=== PATIENT | female | born 1980 | race Caucasian/White ===

== ENCOUNTER 2017-12-10 08:04 | Inpatient (IN) | payer OTHER ==
[2017-12-10] MEDS ORDERED: AL HYDROX/MG HYDROX/SIMETH 30 ML CUP PO (10:00)
[2017-12-10] MEDS ORDERED: ONDANSETRON 4 MG INJ IV (10:00)
[2017-12-10 10:20] LABS: ADD UMIC YES; UR ASCORBIC ACID NEGATIVE (NEGATIVE); UR BACTERIA MANY /HPF (NONE SEEN); UR BILIRUBIN (Dip) NEGATIVE (NEGATIVE); UR BLOOD (Dip) NEGATIVE (NEGATIVE); UR CLARITY CLEAR (CLEAR); UR COLOR YELLOW (YELLOW); UR GLUCOSE (Dip) NEGATIVE (NEGATIVE); UR KETONES (Dip) NEGATIVE (NEGATIVE); UR LEUKOCYTE ESTERASE (Dip) NEGATIVE Leu/ul (NEGATIVE); UR NITRITE (Dip) POSITIVE (NEGATIVE); UR RBC 1 /HPF (0-5); UR SPECIFIC GRAVITY (Dip) 1.019 (1.003-1.030); UR TOTAL PROTEIN (Dip) NEGATIVE (NEGATIVE); UR UROBILINOGEN (Dip) NEGATIVE (NEGATIVE); UR WBC 13 /HPF (0-5)
[2017-12-10 10:48] LABS: ADD MAN DIFF? NO
[2017-12-10] MEDS: LACTATED RINGER'S 1,000 ML IV ×2 (10:56→19:08)
[2017-12-10] MEDS: PIPER-TAZO 3.375 GM IV (PMX) 100 ML IVPB ×3 (10:56→23:47)
[2017-12-10 11:02] LABS: BASOPHILS % 0.5 % (0.0-2.0); EOSINOPHILS # 0.2 10^3/ul (0.0-0.5); EOSINOPHILS % 3.4 % (0.0-7.0); HEMATOCRIT 30.9 % (37.0-47.0); HEMOGLOBIN 10.7 g/dl (12.0-16.0); LYMPHOCYTES # 2.2 10^3/ul (0.8-2.9); LYMPHOCYTES % 33.6 % (15.0-51.0); MEAN CORPUSCULAR HEMOGLOBIN 31.6 pg (29.0-33.0); MEAN CORPUSCULAR HGB CONC 34.6 g/dl (32.0-37.0); MEAN CORPUSCULAR VOLUME 91.2 fl (82.0-101.0); MEAN PLATELET VOLUME 10.1 fl (7.4-10.4); MONOCYTE # 0.5 10^3/ul (0.3-0.9); MONOCYTES % 7.4 % (0.0-11.0); NEUTROPHIL # 3.6 10^3/ul (1.6-7.5); NEUTROPHILS % 54.6 % (39.0-77.0); PLATELET COUNT 193 10^3/UL (140-415); RED BLOOD COUNT 3.39 10^6/ul (4.20-5.40); RED CELL DISTRIBUTION WIDTH 13.5 % (11.5-14.5)
[2017-12-10 11:02] LABS: WHITE BLOOD COUNT 6.5 10^3/ul (4.8-10.8)
[2017-12-10] MEDS: FERROUS SULFATE (EC) 325 MG TAB PO (21:19)
[2017-12-11] MEDS: PIPER-TAZO 3.375 GM IV (PMX) 100 ML IVPB ×4 (05:53→23:49)
[2017-12-11] MEDS: FERROUS SULFATE (EC) 325 MG TAB PO ×3 (09:17→23:48)
[2017-12-11] MEDS: PRENATAL VITAMIN PO (09:17)
[2017-12-11] MEDS: DOCUSATE SODIUM 100 MG CAP PO (09:18)
[2017-12-12] MEDS: LACTATED RINGER'S 1,000 ML IV ×2 (01:41→10:13)
[2017-12-12] MEDS: PIPER-TAZO 3.375 GM IV (PMX) 100 ML IVPB ×3 (05:49→17:54)
[2017-12-12] MEDS: FERROUS SULFATE (EC) 325 MG TAB PO ×3 (10:12→21:56)
[2017-12-12] MEDS: PRENATAL VITAMIN PO (10:12)
[2017-12-12] MEDS: DOCUSATE SODIUM 100 MG CAP PO (10:12)
[2017-12-13] MEDS: PIPER-TAZO 3.375 GM IV (PMX) 100 ML IVPB ×5 (00:08→23:24)
[2017-12-13] MEDS: LACTATED RINGER'S 1,000 ML IV (05:34)
[2017-12-13] MEDS: DOCUSATE SODIUM 100 MG CAP PO (09:41)
[2017-12-13] MEDS: PRENATAL VITAMIN PO (09:41)
[2017-12-13] MEDS: FERROUS SULFATE (EC) 325 MG TAB PO ×2 (09:41→21:20)
[2017-12-14] MEDS: LACTATED RINGER'S 1,000 ML IV ×2 (01:38→13:02)
[2017-12-14] MEDS: PIPER-TAZO 3.375 GM IV (PMX) 100 ML IVPB ×3 (05:36→18:15)
[2017-12-14] MEDS: PRENATAL VITAMIN PO (10:32)
[2017-12-14] MEDS: DOCUSATE SODIUM 100 MG CAP PO (10:32)
[2017-12-14] MEDS: FERROUS SULFATE (EC) 325 MG TAB PO ×2 (10:32→21:31)
[2017-12-15] MEDS: PIPER-TAZO 3.375 GM IV (PMX) 100 ML IVPB ×5 (00:02→23:54)
[2017-12-15] MEDS: LACTATED RINGER'S 1,000 ML IV ×2 (06:04→23:54)
[2017-12-15] MEDS: DOCUSATE SODIUM 100 MG CAP PO (08:27)
[2017-12-15] MEDS: FERROUS SULFATE (EC) 325 MG TAB PO ×2 (08:27→20:45)
[2017-12-15] MEDS: PRENATAL VITAMIN PO (08:27)
[2017-12-16] MEDS: PIPER-TAZO 3.375 GM IV (PMX) 100 ML IVPB ×4 (05:42→23:37)
[2017-12-16] MEDS: DOCUSATE SODIUM 100 MG CAP PO (08:53)
[2017-12-16] MEDS: FERROUS SULFATE (EC) 325 MG TAB PO ×2 (08:53→20:55)
[2017-12-16] MEDS: PRENATAL VITAMIN PO (08:53)
[2017-12-17] MEDS: LACTATED RINGER'S 1,000 ML IV (01:41)
[2017-12-17] MEDS: PIPER-TAZO 3.375 GM IV (PMX) 100 ML IVPB (05:52)
[2017-12-17] MEDS: PRENATAL VITAMIN PO (09:13)
[2017-12-17] MEDS: FERROUS SULFATE (EC) 325 MG TAB PO (09:13)
[2017-12-17] MEDS: DOCUSATE SODIUM 100 MG CAP PO (09:16)
[2017-12-17] MEDS: ACETAMINOPHEN 325 MG TAB PO (10:39)
== END 2017-12-17 12:47 | disposition home or self-care (01) | DRG 781 ==
LOC: PP1 08:04
DX: O23.02 Infections of kidney in pregnancy, second trimester (principal); B96.20 Unspecified Escherichia coli [E. coli] as the cause of diseases classified elsewhere; Z3A.19 19 weeks gestation of pregnancy; O09.522 Supervision of elderly multigravida, second trimester
CPT/HCPCS: 76817; 81001; 85025; 87086; 93005

== ENCOUNTER 2018-05-11 09:37 | Inpatient (IN) | payer OTHER ==
[2018-05-11] MEDS ORDERED: MISOPROSTOL 200 MCG TAB PR (10:30)
[2018-05-11] MEDS ORDERED: IBUPROFEN 600 MG TAB PO (10:30)
[2018-05-11] MEDS ORDERED: BUTORPHANOL 2 MG INJ IV (10:30)
[2018-05-11] MEDS ORDERED: LIDOCAINE 1% (MPF) 30 ML INJ INJ (10:30)
[2018-05-11] MEDS ORDERED: OXYTOCIN 30 UNITS/LR 500 ML IV ×3 (10:30→20:30)
[2018-05-11] MEDS ORDERED: CARBOPROST 250 MCG INJ IM (10:30)
[2018-05-11] MEDS: LACTATED RINGER'S 1,000 ML IV ×2 (11:24→18:31)
[2018-05-11 11:40] LABS: ADD MAN DIFF? NO
[2018-05-11 11:44] LABS: BASOPHILS % 0.3 % (0.0-2.0); EOSINOPHILS # 0.1 10^3/ul (0.0-0.5); HEMATOCRIT 32.8 % (37.0-47.0); LYMPHOCYTES # 1.7 10^3/ul (0.8-2.9); LYMPHOCYTES % 23.4 % (15.0-51.0); MEAN CORPUSCULAR HEMOGLOBIN 29.7 pg (29.0-33.0); MEAN CORPUSCULAR HGB CONC 33.5 g/dl (32.0-37.0); MEAN CORPUSCULAR VOLUME 88.6 fl (82.0-101.0); MEAN PLATELET VOLUME 9.9 fl (7.4-10.4); MONOCYTE # 0.6 10^3/ul (0.3-0.9); MONOCYTES % 7.6 % (0.0-11.0); NEUTROPHIL # 4.8 10^3/ul (1.6-7.5); NEUTROPHILS % 66.3 % (39.0-77.0); PLATELET COUNT 229 10^3/UL (140-415)
[2018-05-11 11:44] LABS: WHITE BLOOD COUNT 7.2 10^3/ul (4.8-10.8)
[2018-05-11 12:12] LABS: INR 0.99; PROTIME 13.2 Sec (11.9-14.9)
[2018-05-11 12:26] LABS: PARTIAL THROMBOPLASTIN TIME 27.9 Sec (23.0-35.0)
[2018-05-11 12:32] LABS: HEPATITIS B SURFACE ANTIGEN NEGATIVE (NEGATIVE)
[2018-05-11 16:24] LABS: RAPID PLASMA REAGIN NONREACTIVE (NR)
[2018-05-12] MEDS: LACTATED RINGER'S 1,000 ML IV ×4 (02:31→12:19)
[2018-05-12] MEDS: OXYTOCIN 30 UNITS/LR 500 ML IV ×2 (07:08→14:21)
[2018-05-12] MEDS ORDERED: FENTAnyl 2MCG/ML-ROPIV 0.2% 100 ML (08:03)
[2018-05-12] MEDS ORDERED: DIPHENHYDRAMINE 50 MG INJ IV (09:00)
[2018-05-12] MEDS ORDERED: NALOXONE (0.4 MG/ML) INJ IV (09:00)
[2018-05-12] MEDS ORDERED: FENTAnyl 2MCG/ML-ROPIV 0.2% 100 ML BAG EPI (09:00)
[2018-05-12] MEDS ORDERED: ONDANSETRON 4 MG INJ IV (09:00)
[2018-05-12] MEDS ORDERED: MINERAL OIL LIGHT 10 ML VIAL (13:37)
[2018-05-12] MEDS: MINERAL OIL LIGHT 10 ML VIAL TOP (14:00)
[2018-05-12] MEDS: METHYLERGONOVINE 0.2 MG INJ IM (14:19)
[2018-05-12] MEDS: MISOPROSTOL 200 MCG TAB PR (14:52)
[2018-05-12] MEDS ORDERED: METHYLERGONOVINE 0.2 MG INJ IM (16:30)
[2018-05-12] MEDS ORDERED: MISOPROSTOL 200 MCG TAB PR (16:30)
[2018-05-12] MEDS ORDERED: CARBOPROST 250 MCG INJ IM (16:30)
[2018-05-12] MEDS ORDERED: OXYTOCIN 30 UNITS/LR 500 ML IV (16:30)
[2018-05-12] MEDS: BENZOCAINE 20% 56 ML SPRAY TOP (18:03)
[2018-05-12] MEDS: WITCH HAZEL/GLYCERIN PAD PR (18:03)
[2018-05-12] MEDS: IBUPROFEN 600 MG TAB PO (18:03)
[2018-05-12] MEDS: DIBUCAINE 1% 30 GM OINT TOP (18:03)
[2018-05-12] MEDS: LACTATED RINGER'S 1,000 ML IV* (18:04)
[2018-05-12] MEDS: SENNA/DOCUSATE NA (8.6MG/50MG) TAB PO (20:58)
[2018-05-12] MEDS: HYDROCODONE/APAP (5/325) TAB PO (22:27)
[2018-05-13] MEDS: IBUPROFEN 600 MG TAB PO ×5 (05:46→23:39)
[2018-05-13 07:57] LABS: ADD MAN DIFF? NO
[2018-05-13 08:03] LABS: BASOPHILS % 0.2 % (0.0-2.0); EOSINOPHILS # 0.1 10^3/ul (0.0-0.5); HEMATOCRIT 28.3 % (37.0-47.0); HEMOGLOBIN 9.5 g/dl (12.0-16.0); LYMPHOCYTES # 2.4 10^3/ul (0.8-2.9); LYMPHOCYTES % 25.1 % (15.0-51.0); MEAN CORPUSCULAR HEMOGLOBIN 29.7 pg (29.0-33.0); MEAN CORPUSCULAR HGB CONC 33.6 g/dl (32.0-37.0); MEAN CORPUSCULAR VOLUME 88.4 fl (82.0-101.0); MEAN PLATELET VOLUME 9.9 fl (7.4-10.4); MONOCYTE # 0.9 10^3/ul (0.3-0.9); MONOCYTES % 9.5 % (0.0-11.0); NEUTROPHILS % 63.4 % (39.0-77.0); PLATELET COUNT 200 10^3/UL (140-415); RED CELL DISTRIBUTION WIDTH 14.1 % (11.5-14.5)
[2018-05-13 08:03] LABS: WHITE BLOOD COUNT 9.5 10^3/ul (4.8-10.8)
[2018-05-13] MEDS: SENNA/DOCUSATE NA (8.6MG/50MG) TAB PO ×2 (09:30→21:00)
[2018-05-13] MEDS: HYDROCODONE/APAP (5/325) TAB PO ×2 (09:38→18:47)
[2018-05-13] MEDS: ACETAMINOPHEN 325 MG TAB PO (23:41)
[2018-05-14] MEDS: IBUPROFEN 600 MG TAB PO ×4 (05:38→23:42)
[2018-05-14] MEDS: BENZOCAINE 20% 56 ML SPRAY TOP (08:35)
[2018-05-14] MEDS: SENNA/DOCUSATE NA (8.6MG/50MG) TAB PO ×2 (08:35→21:31)
[2018-05-14] MEDS: WITCH HAZEL/GLYCERIN PAD PR (08:35)
[2018-05-14] MEDS: DIPHTH/TET/ACEL PERTUSS (ADULT) 0.5 ML VIAL IM* (09:00)
[2018-05-14] MEDS: HYDROCODONE/APAP (5/325) TAB PO (10:07)
[2018-05-14 12:09] LABS: ADD MAN DIFF? NO
[2018-05-14 12:13] LABS: BASOPHILS % 0.2 % (0.0-2.0); EOSINOPHILS % 0.2 % (0.0-7.0); HEMATOCRIT 29.1 % (37.0-47.0); HEMOGLOBIN 9.6 g/dl (12.0-16.0); LYMPHOCYTES # 0.8 10^3/ul (0.8-2.9); LYMPHOCYTES % 7.4 % (15.0-51.0); MEAN CORPUSCULAR HEMOGLOBIN 29.5 pg (29.0-33.0); MEAN CORPUSCULAR VOLUME 89.5 fl (82.0-101.0); MEAN PLATELET VOLUME 9.2 fl (7.4-10.4); MONOCYTE # 0.9 10^3/ul (0.3-0.9); MONOCYTES % 7.8 % (0.0-11.0); NEUTROPHIL # 9.4 10^3/ul (1.6-7.5); NEUTROPHILS % 83.1 % (39.0-77.0); PLATELET COUNT 190 10^3/UL (140-415); RED BLOOD COUNT 3.25 10^6/ul (4.20-5.40); RED CELL DISTRIBUTION WIDTH 14.2 % (11.5-14.5)
[2018-05-14 12:13] LABS: WHITE BLOOD COUNT 11.3 10^3/ul (4.8-10.8)
[2018-05-14 12:33] LABS: ALANINE AMINOTRANSFERASE 18 IU/L (13-69); ALBUMIN 3.1 g/dl (3.3-4.9); ALBUMIN/GLOBULIN RATIO 1.06; ALKALINE PHOSPHATASE 108 IU/L (42-121); ANION GAP 12 (5-13); ASPARTATE AMINO TRANSFERASE 27 IU/L (15-46); BILIRUBIN,INDIRECT 0.1 mg/dl (0-1.1); BILIRUBIN,TOTAL 0.1 mg/dl (0.2-1.3); BLOOD UREA NITROGEN 8 mg/dl (7-20); CARBON DIOXIDE 22 mmol/L (21-31); CHLORIDE 103 mmol/L (97-110); CREATININE 0.65 mg/dl (0.44-1.00); Estimated GFR > 60 mL/min (>60); GLUCOSE 104 mg/dl (70-220); SODIUM 137 mmol/L (135-144); URIC ACID 4.7 mg/dl (3.1-7.9)
[2018-05-14] MEDS: LACTATED RINGER'S 1,000 ML IV ×2 (13:14→20:00)
[2018-05-14] MEDS: PIPER-TAZO 3.375 GM IV (PMX) 100 ML IVPB ×3 (13:45→23:42)
[2018-05-14] MEDS: ACETAMINOPHEN 325 MG TAB PO (15:03)
[2018-05-14] MEDS: DIBUCAINE 1% 30 GM OINT TOP (18:31)
[2018-05-14 18:42] LABS: D-DIMER 954.77 ng/ml (<460)
[2018-05-14 20:22] LABS: THYROID STIMULATING HORMONE 0.669 MIU/L (0.465-4.680)
[2018-05-15] MEDS: LACTATED RINGER'S 1,000 ML IV ×3 (04:00→16:01)
[2018-05-15] MEDS: ACETAMINOPHEN 325 MG TAB PO ×2 (04:35→18:49)
[2018-05-15] MEDS: IBUPROFEN 600 MG TAB PO ×4 (05:48→23:56)
[2018-05-15] MEDS: PIPER-TAZO 3.375 GM IV (PMX) 100 ML IVPB ×4 (05:49→23:56)
[2018-05-15] MEDS: SENNA/DOCUSATE NA (8.6MG/50MG) TAB PO ×2 (08:40→20:43)
[2018-05-15 19:34] LABS: ADD MAN DIFF? NO
[2018-05-15 19:36] LABS: WHITE BLOOD COUNT 12.4 10^3/ul (4.8-10.8)
[2018-05-15 19:36] LABS: BASOPHILS % 0.2 % (0.0-2.0); EOSINOPHILS # 0.1 10^3/ul (0.0-0.5); EOSINOPHILS % 0.4 % (0.0-7.0); HEMATOCRIT 26.7 % (37.0-47.0); LYMPHOCYTES # 0.9 10^3/ul (0.8-2.9); LYMPHOCYTES % 7.6 % (15.0-51.0); MEAN CORPUSCULAR HEMOGLOBIN 30.3 pg (29.0-33.0); MEAN CORPUSCULAR HGB CONC 33.7 g/dl (32.0-37.0); MEAN CORPUSCULAR VOLUME 89.9 fl (82.0-101.0); MEAN PLATELET VOLUME 9.2 fl (7.4-10.4); MONOCYTE # 0.8 10^3/ul (0.3-0.9); MONOCYTES % 6.2 % (0.0-11.0); NEUTROPHIL # 10.5 10^3/ul (1.6-7.5); NEUTROPHILS % 84.6 % (39.0-77.0); PLATELET COUNT 186 10^3/UL (140-415); RED BLOOD COUNT 2.97 10^6/ul (4.20-5.40); RED CELL DISTRIBUTION WIDTH 14.6 % (11.5-14.5)
[2018-05-15] MEDS: MAGNESIUM HYDROXIDE 30ML CUP PO (20:43)
[2018-05-16] MEDS: LACTATED RINGER'S 1,000 ML IV ×3 (02:45→21:08)
[2018-05-16] MEDS: IBUPROFEN 600 MG TAB PO ×4 (06:00→23:23)
[2018-05-16] MEDS: PIPER-TAZO 3.375 GM IV (PMX) 100 ML IVPB ×3 (06:03→18:12)
[2018-05-16] MEDS: SENNA/DOCUSATE NA (8.6MG/50MG) TAB PO ×2 (10:05→22:16)
[2018-05-17] MEDS: PIPER-TAZO 3.375 GM IV (PMX) 100 ML IVPB ×4 (00:08→17:57)
[2018-05-17] MEDS: IBUPROFEN 600 MG TAB PO ×3 (05:56→17:56)
[2018-05-17 09:13] LABS: ADD MAN DIFF? NO
[2018-05-17 09:14] LABS: BASOPHILS % 0.2 % (0.0-2.0); EOSINOPHILS # 0.1 10^3/ul (0.0-0.5); HEMATOCRIT 25.2 % (37.0-47.0); HEMOGLOBIN 8.2 g/dl (12.0-16.0); LYMPHOCYTES # 1.6 10^3/ul (0.8-2.9); LYMPHOCYTES % 19.4 % (15.0-51.0); MEAN CORPUSCULAR HEMOGLOBIN 29.6 pg (29.0-33.0); MEAN CORPUSCULAR HGB CONC 32.5 g/dl (32.0-37.0); MONOCYTE # 0.8 10^3/ul (0.3-0.9); NEUTROPHIL # 5.6 10^3/ul (1.6-7.5); NEUTROPHILS % 68.1 % (39.0-77.0); NUCLEATED RED BLOOD CELLS% 0.2 /100WBC (0.0-0.0); PLATELET COUNT 220 10^3/UL (140-415); RED BLOOD COUNT 2.77 10^6/ul (4.20-5.40); RED CELL DISTRIBUTION WIDTH 14.6 % (11.5-14.5)
[2018-05-17 09:14] LABS: WHITE BLOOD COUNT 8.3 10^3/ul (4.8-10.8)
[2018-05-17] MEDS: SENNA/DOCUSATE NA (8.6MG/50MG) TAB PO (09:15)
== END 2018-05-17 19:50 | disposition home or self-care (01) | DRG 805 ==
LOC: OBT 09:37 → PP1 05-12 16:11 → L-D 09:37 → OBT 10:03 → L-D 10:10
PROVIDERS: Obstetrics & Gynecology
PROC: 10E0XZZ Delivery of Products of Conception, External Approach (ICD-10-PCS; principal; 2018-05-12)
PROC: 0UQGXZZ Repair Vagina, External Approach (ICD-10-PCS; 2018-05-12)
DX: O75.2 Pyrexia during labor, not elsewhere classified (principal); O75.3 Other infection during labor; Z37.0 Single live birth; O71.4 Obstetric high vaginal laceration alone; O48.0 Post-term pregnancy; Z3A.40 40 weeks gestation of pregnancy; O99.02 Anemia complicating childbirth
CPT/HCPCS: 62319; 71046; 76815; 76818; 80053; 84443; 84560; 85025; 85378; 85610; 85730; 86592; 86850; 86900; 86901; 87040; 87086; 87340; 93005; 93306; 93970

== ENCOUNTER 2018-07-24 08:18 | Day surgery (SDC) | payer OTHER ==
[2018-07-24] MEDS: CEFAZOLIN 2 GM/50 ML (PMX) 50 ML (FOR WT < 120 KG) IVPB (06:00)
[2018-07-24] MEDS: SOD CHLORIDE 0.9% 1,000 ML IV (06:00)
[2018-07-24 09:38] LABS: ADD MAN DIFF? NO
[2018-07-24 09:40] LABS: BASOPHIL # 0.1 10^3/ul (0.0-0.1); BASOPHILS % 0.8 % (0.0-2.0); EOSINOPHILS # 0.2 10^3/ul (0.0-0.5); EOSINOPHILS % 3.8 % (0.0-7.0); HEMATOCRIT 37.7 % (37.0-47.0); HEMOGLOBIN 12.9 g/dl (12.0-16.0); LYMPHOCYTES # 2.8 10^3/ul (0.8-2.9); LYMPHOCYTES % 43.6 % (15.0-51.0); MEAN CORPUSCULAR HEMOGLOBIN 28.8 pg (29.0-33.0); MEAN CORPUSCULAR HGB CONC 34.2 g/dl (32.0-37.0); MEAN CORPUSCULAR VOLUME 84.2 fl (82.0-101.0); MEAN PLATELET VOLUME 10.1 fl (7.4-10.4); MONOCYTE # 0.6 10^3/ul (0.3-0.9); MONOCYTES % 8.9 % (0.0-11.0); NEUTROPHIL # 2.7 10^3/ul (1.6-7.5); NEUTROPHILS % 42.6 % (39.0-77.0); PLATELET COUNT 226 10^3/UL (140-415); RED BLOOD COUNT 4.48 10^6/ul (4.20-5.40); RED CELL DISTRIBUTION WIDTH 14.5 % (11.5-14.5)
[2018-07-24 09:40] LABS: WHITE BLOOD COUNT 6.4 10^3/ul (4.8-10.8)
[2018-07-24] MEDS: LACTATED RINGER'S 1,000 ML IV (09:49)
[2018-07-24] MEDS ORDERED: MEPERIDINE 25 MG INJ IV ×2 (10:30→11:00)
[2018-07-24] MEDS ORDERED: ONDANSETRON 4 MG INJ IV ×2 (10:30→14:00)
[2018-07-24] MEDS ORDERED: HYDROmorphONE 1 MG/5 ML IV SYRINGE IV ×4 (10:30→11:00)
[2018-07-24] MEDS ORDERED: OXYCODONE/ACETAMINOPHEN (5/325) TAB PO ×2 (10:30)
[2018-07-24] MEDS ORDERED: FENTAnyl 50 MCG/ML VIAL (10:48)
[2018-07-24] MEDS ORDERED: ROCURONIUM 50 MG INJ (10:48)
[2018-07-24] MEDS ORDERED: MIDAZOLAM 1 MG/ML 2 ML INJ (10:48)
[2018-07-24] MEDS ORDERED: PROPOFOL 20 ML (10:48)
[2018-07-24] MEDS ORDERED: ROPIVACAINE 0.5 % 30 ML VIAL (10:49)
[2018-07-24] MEDS ORDERED: FENTAnyl 50 MCG/ML VIAL IV ×3 (11:00)
[2018-07-24] MEDS ORDERED: METOCLOPRAMIDE 10 MG INJ IV (11:00)
[2018-07-24] MEDS ORDERED: DIPHENHYDRAMINE 50 MG INJ IV (11:00)
[2018-07-24] MEDS ORDERED: CEFAZOLIN 1 GM INJ (11:28)
[2018-07-24] MEDS ORDERED: ONDANSETRON 4 MG INJ (11:52)
[2018-07-24] MEDS ORDERED: DEXAMETHASONE 4 MG/ML 5 ML INJ (11:52)
[2018-07-24] MEDS ORDERED: KETOROLAC 30 MG INJ (11:52)
[2018-07-24] MEDS ORDERED: METOCLOPRAMIDE 10 MG INJ (11:52)
[2018-07-24] MEDS ORDERED: SUGAMMADEX SODIUM 200 MG/2 ML VIAL IV (11:53)
[2018-07-24] MEDS: BUPIVACAINE 0.5% (SDV) 30 ML INJ (12:05)
[2018-07-24] MEDS: HYDROmorphONE 1 MG/5 ML IV SYRINGE IV ×2 (12:25→12:42)
[2018-07-24] MEDS: OXYCODONE/ACETAMINOPHEN (5/325) TAB PO (13:25)
[2018-07-24] MEDS: ONDANSETRON 4 MG INJ IV (13:29)
[2018-07-24] MEDS ORDERED: KETOROLAC 30 MG INJ IV (14:00)
[2018-07-24] MEDS ORDERED: HYDROCODONE/APAP (5/325) TAB PO ×2 (14:00)
[2018-07-24] MEDS ORDERED: morphine 2 MG INJ IV (14:00)
== END 2018-07-24 14:14 | disposition home or self-care (01) ==
LOC: SDS 08:18
DX: Z30.2 Encounter for sterilization (principal)
CPT/HCPCS: 58600; 84703; 85025; 86850; 86900; 86901; 88302